=== PATIENT | female | born 1945 | race Hispanic/Latino ===

== ENCOUNTER 2018-06-28 17:51 | Emergency (ER) | payer MEDICARE ==
[2018-06-28] MEDS ORDERED: ONDANSETRON HCL 4 MG/2 ML VIAL ONE ×2 (18:02→19:41)
[2018-06-28 18:08] LABS: BASOPHILS % (AUTO) 0.3 % (0.0-5.0); EOSINOPHILS % (AUTO) 0.4 % (0.0-8.0); HEMATOCRIT 41.8 % (36-48); LYMPHOCYTES % (AUTO) 5.9 % (21.0-51.0); MEAN CORPUSCULAR HGB CONC 33.9 g/dL (32.0-36.0); MEAN CORPUSCULAR VOLUME 88.6 fL (79-99); MONOCYTES % (AUTO) 2.3 % (3.0-13.0); NEUTROPHILS % (AUTO) 91.1 % (40.0-77.0); NUCLEATED RED BLOOD CELLS 0.1 % (0.0-0.19); PLATELET COUNT (AUTO) 242 K/uL (130-400); RED BLOOD CELL COUNT(AUTO) 4.72 MIL/uL (4.00-5.50); RED CELL DISTRIBUTION WIDTH 14.3 % (11.0-15.5); WHITE BLOOD COUNT (AUTO) 8.6 K/uL (4.8-10.8)
[2018-06-28 18:18] LABS: CREATININE 0.9 mg/dL (0.5-1.5); POTASSIUM 3.6 mmol/L (3.5-5.1)
[2018-06-28] MEDS ORDERED: SODIUM CHLORIDE 0.9% 1000ML 1,000 ML IV ONE (18:38)
[2018-06-28] MEDS ORDERED: DIPHENOXYLATE HCL/ATROPINE 2.5/0.025 MG TAB PO ONE ×2 (19:42)
== END 2018-06-28 20:29 | disposition home or self-care (01) ==
LOC: EDH 17:51
DX: A09 Infectious gastroenteritis and colitis, unspecified (principal); I10 Essential (primary) hypertension; F32.9 Major depressive disorder, single episode, unspecified
CPT/HCPCS: 36415; 80048; 85025; 96361; 96374; 96376; 99283; J2405 ×2; J7030

== ENCOUNTER → 2019-11-26 | Outpatient (CLI) | payer MEDICARE | END | disposition home or self-care (01) | LOC: OIH 13:00 | PROVIDERS: ATTEND Family Medicine | DX: M25.559 Pain in unspecified hip (principal); M25.512 Pain in left shoulder; M79.652 Pain in left thigh | CPT/HCPCS: 73030; 73502; 73552 ==

== ENCOUNTER → 2020-06-23 | Outpatient (CLI) | payer MEDICARE | END | disposition home or self-care (01) | LOC: OIH 14:49 | PROVIDERS: ATTEND Family Medicine | DX: M85.88 Other specified disorders of bone density and structure, other site (principal); M53.3 Sacrococcygeal disorders, not elsewhere classified | CPT/HCPCS: 72220 ==

== ENCOUNTER 2021-02-09 11:55 | Inpatient (IN) | payer MEDICARE ==
[~2021-02-09] VITALS: Ht 406.4 cm; Wt 122.4 kg
[2021-02-09 14:13] LABS: BASOPHILS % (AUTO) 0.5 % (0.0-5.0); HEMATOCRIT 39.9 % (36-48); MEAN CORPUSCULAR HEMOGLOBIN 30.4 pg (27.0-33.0); MEAN CORPUSCULAR HGB CONC 34.3 g/dL (32.0-36.0); MEAN CORPUSCULAR VOLUME 88.7 fL (79-99); MONOCYTES % (AUTO) 8.1 % (3.0-13.0); NEUTROPHILS % (AUTO) 61.9 % (40.0-77.0); PLATELET COUNT (AUTO) 333 K/uL (130-400); RED CELL DISTRIBUTION WIDTH 14.4 % (11.0-15.5); WHITE BLOOD COUNT (AUTO) 5.9 K/uL (4.8-10.8)
[2021-02-09 14:37] LABS: CARBON DIOXIDE 24 mmol/L (21-32); CHLORIDE 105 mmol/L (101-111); GLOMERULAR FILTR. RATE CALC 58 mL/min (>60); GLUCOSE,RANDOM 125 mg/dL (70-105); POTASSIUM 3.4 mmol/L (3.5-5.1); SODIUM SERUM 142 mmol/L (136-145); UREA NITROGEN, BLOOD 18 mg/dL (7-18)
[2021-02-09 14:38] LABS: B-TYPE NATRIURETIC PEPTIDE 53 pg/mL (0-100)
[2021-02-09 14:43] LABS: ALANINE AMINOTRANSFERASE 29 U/L (12-78); ALBUMIN 3.6 g/dL (3.5-5.0); ASPARTATE AMINOTRANSFERASE 34 U/L (10-37); BILIRUBIN,TOTAL 0.5 mg/dL (0.2-1.0); CREATINE KINASE, TOTAL 147 U/L (21-232); TOTAL PROTEIN, SERUM 6.9 g/dL (6.0-8.3)
[2021-02-09 14:51] LABS: CRP QUANTITATIVE < 2.00 mg/L (0.00-9.0)
[2021-02-09] MEDS: 0.9%NACL 1000ML 1,000 ML IV SCH ×2 (15:33→19:40)
[2021-02-09] MEDS ORDERED: ACETAMINOPHEN 325 MG TAB PO PRN (18:30)
[2021-02-09] MEDS ORDERED: ONDANSETRON 4MG INJ IV PRN (18:30)
[2021-02-09 20:14] LABS: THYROID STIMULATING HORMONE 1.13 uIU/mL (0.36-3.74)
[2021-02-09 20:15] VITALS: BP 164/87
[2021-02-09 20:24] LABS: CRP QUANTITATIVE < 2.00 mg/L (0.00-9.0)
[2021-02-09] MEDS: FAMOTIDINE 20MG VIAL IV SCH (21:13)
[2021-02-09] MEDS ORDERED: HALOPERIDOL INJ 5 MG/ML VIAL ONE (22:12)
[2021-02-09] MEDS ORDERED: LORAZEPAM 2 MG/ML 1 ML VIAL ONE (22:13)
[2021-02-09] MEDS ORDERED: HALOPERIDOL INJ 5 MG/ML VIAL IV SCH ×2 (22:30)
[2021-02-09] MEDS ORDERED: LORAZEPAM 2 MG/ML 1 ML VIAL IVP ONE (22:30)
[2021-02-09] MEDS ORDERED: DiphenhydrAMINE HCL 50 MG/ML VIAL ONE (22:31)
[2021-02-09] MEDS ORDERED: ZIPRASIDONE MESYLATE 20 MG/VIAL IM ONE (22:47)
[2021-02-09 23:00] VITALS: BP 162/74
[2021-02-09] MEDS ORDERED: ZIPRASIDONE MESYLATE 20 MG/VIAL IM SCH (23:00)
[2021-02-10 02:45] VITALS: BP 176/67
[2021-02-10] MEDS: 0.9%NACL 1000ML 1,000 ML IV SCH ×3 (02:48→18:01)
[2021-02-10] MEDS ORDERED: LORAZEPAM 2 MG/ML 1 ML VIAL IVP ONE (03:00)
[2021-02-10 04:00] VITALS: BP 132/74
[2021-02-10] MEDS: FAMOTIDINE 20MG VIAL IV SCH (10:29)
[2021-02-10] MEDS ORDERED: VANCOMYCIN PROTOCOL PER PHARMACY IV SCH (11:00)
[2021-02-10] MEDS ORDERED: 0.9% NACL 250ML 250 ML IV SCH (11:30)
[2021-02-10] MEDS ORDERED: VANCOMYCIN KIT 1 GM/250 ML IV.KIT IV SCH (11:30)
[2021-02-10] MEDS ORDERED: CARBIDOPA-LEVODOPA 25-100 TAB PO SCH (11:43)
[2021-02-10] MEDS ORDERED: LEVETIRACETAM 500 MG in 0.9%NACL 100ML 100 ML IV SCH (11:54)
[2021-02-10 12:00] VITALS: BP 134/96
[2021-02-10] MEDS ORDERED: COMPOUND IV MISC 1 EACH IVSOLN MISC PRN ×2 (13:30→14:00)
[2021-02-10] MEDS ORDERED: PHARMACY COMMUNICATION MISC SCH (13:30)
[2021-02-10] MEDS ORDERED: ACYCLOVIR IV SCH (14:00)
[2021-02-10] MEDS ORDERED: [UNRECOGNIZED DRUG - OTHER] IV SCH (14:00)
[2021-02-10 14:54] LABS: ABG BASE EXCESS -3.7 mmol/L (-2.0-3.0); ABG HCO3 17.9 mmol/L (21.0-28.0); ABG PCO2 25 mmHg (32-45)
[2021-02-10] MEDS: CEFTRIAXONE 2GM VIAL IVP SCH (14:56)
[2021-02-10] MEDS ORDERED: LEVO25CA4 PO (18:11)
[2021-02-10] MEDS ORDERED: TRAM50TA4 PO (18:11)
[2021-02-10] MEDS ORDERED: IBUP-2076 PO (18:11)
[2021-02-10] MEDS ORDERED: MONT10TA32 PO (18:11)
[2021-02-10] MEDS ORDERED: TOPI50TA24 PO (18:11)
[2021-02-10] MEDS ORDERED: ISOS60TA77 PO (18:11)
[2021-02-10] MEDS ORDERED: IBUP-2071 PO (18:11)
[2021-02-10] MEDS ORDERED: PRED50TA2 PO (18:11)
[2021-02-10] MEDS ORDERED: CYCL5TAB PO (18:11)
[2021-02-10] MEDS ORDERED: FENO120T5 PO (18:11)
[2021-02-10] MEDS ORDERED: OMEP40CA21 PO (18:11)
[2021-02-10] MEDS ORDERED: ALEN70TA80 PO (18:11)
[2021-02-10] MEDS ORDERED: ROSU40TA21 PO (18:11)
[2021-02-10] MEDS ORDERED: ROPI1TAB13 PO (18:11)
[2021-02-10] MEDS ORDERED: AMIT10TA6 PO (18:11)
[2021-02-10 19:10] VITALS: BP 136/63
[2021-02-10] MEDS ORDERED: LIDOCAINE HCL-MPF 1% 2ML VIAL IV PRN (20:30)
[2021-02-10] MEDS ORDERED: POTASSIUM CHLORIDE 10% ELIXIR 20 MEQ/15 ML UDCUP PO PRN (20:30)
[2021-02-10] MEDS ORDERED: POTASSIUM CHLORIDE 20MEQ/100ML 100 ML IV PRN (20:30)
[2021-02-10 20:49] LABS: ABG BASE EXCESS -6.4 mmol/L (-2.0-3.0); ABG HCO3 17.6 mmol/L (21.0-28.0); ABG OXYGEN SATURATION 97.1 % (95.0-99.0); ABG PCO2 31 mmHg (32-45)
[2021-02-10 21:14] LABS: CREATININE 0.7 mg/dL (0.5-1.5)
[2021-02-10 21:16] LABS: POTASSIUM 2.9 mmol/L (3.5-5.1)
[2021-02-10] MEDS: SODIUM BICARB 8.4% 50ML SYRING 150 MEQ in DEXTROSE 5%-WATER 1,000 ML IVP SCH (21:19)
[2021-02-10] MEDS: POTASSIUM CHLORIDE 20MEQ/100ML 100 ML IV PRN (21:51)
[2021-02-10] MEDS: LIDOCAINE HCL-MPF 1% 2ML VIAL IJ PRN (21:54)
[2021-02-10] MEDS: [UNRECOGNIZED DRUG - OTHER] IV SCH (22:57)
[2021-02-10] MEDS: ACYCLOVIR IV SCH (22:57)
[2021-02-10 23:01] LABS: AMPHET/METH SCREEN,URINE NEGATIVE (NEGATIVE); APPEARANCE,URINE Clear (CLEAR); BARBITURATE SCREEN, URINE NEGATIVE (NEGATIVE); BENZODIAZEPINES SCREEN,URINE NEGATIVE (NEGATIVE); BILIRUBIN,URINE Negative (NEGATIVE); CANNABINOID SCREEN,URINE NEGATIVE (NEGATIVE); COCAINE SCREEN,URINE NEGATIVE (NEGATIVE); COLOR,URINE Yellow (YELLOW); GLUCOSE, URINE (UA) Negative (NEGATIVE); KETONES,URINE 15 mg/dL (NEGATIVE); LEUKOCYTE ESTERASE ,URINE Negative (NEGATIVE); NITRATE,URINE Negative (NEGATIVE); OCCULT BLOOD,URINE Negative (NEGATIVE); OPIATE SCREEN,URINE NEGATIVE (NEGATIVE); PH,URINE 5.5 (5.0-8.0); PHENCYCLIDINE SCREEN,URINE NEGATIVE (NEGATIVE); PROTEIN,URINE Negative (NEGATIVE)
[2021-02-11] VITALS: BP 143/58
[2021-02-11] MEDS: POTASSIUM CHLORIDE 20MEQ/100ML 100 ML IV PRN ×3 (00:26→21:19)
[2021-02-11] MEDS: [UNRECOGNIZED DRUG - OTHER] IV SCH ×4 (00:27→22:30)
[2021-02-11] MEDS: ACYCLOVIR IV SCH ×4 (00:27→22:30)
[2021-02-11] MEDS: LEVETIRACETAM 1,000 MG in 0.9%NACL 100ML 100 ML IV SCH ×3 (00:27→23:26)
[2021-02-11 00:39] LABS: CREATININE 0.8 mg/dL (0.5-1.5); POTASSIUM 3.4 mmol/L (3.5-5.1)
[2021-02-11 04:00] VITALS: BP 151/57
[2021-02-11] MEDS: 0.9%NACL 1000ML 1,000 ML IV SCH (04:01)
[2021-02-11 04:18] LABS: APPEARANCE,URINE Clear (CLEAR); BILIRUBIN,URINE Negative (NEGATIVE); COLOR,URINE Yellow (YELLOW); GLUCOSE, URINE (UA) Negative (NEGATIVE); KETONES,URINE 15 mg/dL (NEGATIVE); LEUKOCYTE ESTERASE ,URINE Small (NEGATIVE); NITRATE,URINE Negative (NEGATIVE); OCCULT BLOOD,URINE Negative (NEGATIVE); PH,URINE 7.5 (5.0-8.0); PROTEIN,URINE Negative (NEGATIVE)
[2021-02-11 04:31] LABS: BACTERIA,URINE None Seen /HPF (None Seen); RBC,URINE 0-1 /HPF (0-1); SQUAMOUS EPITHELIAL CELL,UR Few /HPF (0-2); WBC,URINE 0-1 /HPF (0-1)
[2021-02-11 05:47] LABS: BASOPHILS % (AUTO) 0.3 % (0.0-5.0); EOSINOPHILS % (AUTO) 3.3 % (0.0-8.0); HEMATOCRIT 33.7 % (36-48); LYMPHOCYTES % (AUTO) 25.3 % (21.0-51.0); MEAN CORPUSCULAR HEMOGLOBIN 30.1 pg (27.0-33.0); MEAN CORPUSCULAR HGB CONC 33.5 g/dL (32.0-36.0); MEAN CORPUSCULAR VOLUME 89.9 fL (79-99); MONOCYTES % (AUTO) 8.3 % (3.0-13.0); NEUTROPHILS % (AUTO) 62.6 % (40.0-77.0); PLATELET COUNT (AUTO) 240 K/uL (130-400); RED BLOOD CELL COUNT(AUTO) 3.75 MIL/uL (4.00-5.50); RED CELL DISTRIBUTION WIDTH 14.6 % (11.0-15.5)
[2021-02-11 06:06] LABS: CREATININE 0.8 mg/dL (0.5-1.5); MAGNESIUM 1.7 mg/dL (1.80-2.40); PHOSPHORUS 1.6 mg/dL (2.5-4.9); POTASSIUM 3.1 mmol/L (3.5-5.1); SALICYLATE 3.1 mg/dL (2.8-20.0); URIC ACID 6.8 mg/dL (2.6-7.2)
[2021-02-11 07:52] VITALS: BP 129/45
[2021-02-11 08:16] LABS: CREATININE 0.8 mg/dL (0.5-1.5); POTASSIUM 3.4 mmol/L (3.5-5.1)
[2021-02-11] MEDS ORDERED: 0.9% NACL 250ML 250 ML IV SCH (09:00)
[2021-02-11] MEDS: FAMOTIDINE 20MG VIAL IV SCH (10:16)
[2021-02-11] MEDS: VANCOMYCIN 750MG VIAL IVPB SCH (10:16)
[2021-02-11] MEDS: SODIUM BICARB 8.4% 50ML SYRING 150 MEQ in DEXTROSE 5%-WATER 1,000 ML IVP SCH (11:34)
[2021-02-11] MEDS: CEFTRIAXONE 2GM VIAL IVP SCH ×2 (11:38→22:13)
[2021-02-11 11:50] LABS: CREATININE 0.9 mg/dL (0.5-1.5)
[2021-02-11 11:54] LABS: POTASSIUM 2.7 mmol/L (3.5-5.1)
[2021-02-11] MEDS: LIDOCAINE HCL-MPF 1% 2ML VIAL IJ PRN ×2 (12:08→21:19)
[2021-02-11 12:15] VITALS: BP 147/87
[2021-02-11 13:38] LABS: RAPID PLASMA REAGIN NONREACTIVE (NONREACTIVE)
[2021-02-11 14:31] LABS: APPEARANCE,URINE Clear (CLEAR); BILIRUBIN,URINE Negative (NEGATIVE); COLOR,URINE Yellow (YELLOW); GLUCOSE, URINE (UA) Negative (NEGATIVE); KETONES,URINE 15 mg/dL (NEGATIVE); LEUKOCYTE ESTERASE ,URINE Negative (NEGATIVE); NITRATE,URINE Negative (NEGATIVE); OCCULT BLOOD,URINE Negative (NEGATIVE); PH,URINE >=9.0 (5.0-8.0); PROTEIN,URINE Negative (NEGATIVE)
[2021-02-11 14:40] LABS: BACTERIA,URINE Rare /HPF (None Seen); RBC,URINE 0-1 /HPF (0-1); SQUAMOUS EPITHELIAL CELL,UR Rare /HPF (0-2); WBC,URINE 0-1 /HPF (0-1)
[2021-02-11] MEDS: MAGNESIUM 2GM PREMIX 50ML 50 ML IV SCH (15:17)
[2021-02-11] MEDS: OLANZAPINE 10MG/ML 1ML VIAL IM SCH ×2 (15:37→21:00)
[2021-02-11 15:48] LABS: CREATININE 0.8 mg/dL (0.5-1.5); POTASSIUM 3.1 mmol/L (3.5-5.1)
[2021-02-11 16:52] VITALS: BP 156/85
[2021-02-11] MEDS ORDERED: LORAZEPAM 2 MG/ML 1 ML VIAL ONE (17:21)
[2021-02-11] MEDS ORDERED: [UNRECOGNIZED DRUG - REMARK] MISC STA (17:48)
[2021-02-11 20:19] LABS: CREATININE 0.9 mg/dL (0.5-1.5)
[2021-02-11 20:21] LABS: POTASSIUM 2.9 mmol/L (3.5-5.1)
[2021-02-11 21:11] VITALS: BP 132/99
[2021-02-12] MEDS: LIDOCAINE HCL-MPF 1% 2ML VIAL IJ PRN (01:34)
[2021-02-12] MEDS: [UNRECOGNIZED DRUG - OTHER] IV SCH ×3 (06:13→22:34)
[2021-02-12] MEDS: ACYCLOVIR IV SCH ×3 (06:13→22:34)
[2021-02-12 07:16] VITALS: BP 142/57
[2021-02-12] MEDS: LEVETIRACETAM 1,000 MG in 0.9%NACL 100ML 100 ML IV SCH ×2 (08:33→22:14)
[2021-02-12] MEDS: FAMOTIDINE 20MG VIAL IV SCH (08:33)
[2021-02-12 08:43] LABS: BASOPHILS % (AUTO) 0.4 % (0.0-5.0); EOSINOPHILS % (AUTO) 4.9 % (0.0-8.0); HEMATOCRIT 33.6 % (36-48); LYMPHOCYTES % (AUTO) 27.4 % (21.0-51.0); MEAN CORPUSCULAR HEMOGLOBIN 30.5 pg (27.0-33.0); MEAN CORPUSCULAR HGB CONC 34.2 g/dL (32.0-36.0); MEAN CORPUSCULAR VOLUME 89.1 fL (79-99); MONOCYTES % (AUTO) 7.3 % (3.0-13.0); NEUTROPHILS % (AUTO) 59.8 % (40.0-77.0); PLATELET COUNT (AUTO) 246 K/uL (130-400); RED BLOOD CELL COUNT(AUTO) 3.77 MIL/uL (4.00-5.50); RED CELL DISTRIBUTION WIDTH 14.7 % (11.0-15.5); WHITE BLOOD COUNT (AUTO) 4.9 K/uL (4.8-10.8)
[2021-02-12 08:55] LABS: CREATININE 0.8 mg/dL (0.5-1.5); POTASSIUM 3.8 mmol/L (3.5-5.1)
[2021-02-12] MEDS: VANCOMYCIN 750MG VIAL IVPB SCH (09:13)
[2021-02-12] MEDS: OLANZAPINE 10MG/ML 1ML VIAL IM SCH ×3 (09:32→21:00)
[2021-02-12] MEDS: CEFTRIAXONE 2GM VIAL IVP SCH (11:29)
[2021-02-12 11:32] VITALS: BP_SYST 155; BP_SYST 156; BP_DIAS 108; BP_DIAS 94
[2021-02-12] MEDS: LORAZEPAM 2 MG/ML 1 ML VIAL IM PRN (12:03)
[2021-02-12 16:26] VITALS: BP 146/79
[2021-02-12] MEDS ORDERED: GLUCAGON 1MG KIT 1 MG ML IM SCH (16:30)
[2021-02-12] MEDS ORDERED: DEXTROSE 50%-WATER 50 ML DISP.SYRIN IV ONE (16:35)
[2021-02-12] MEDS ORDERED: 0.9%NACL 100ML IV SCH (17:30)
[2021-02-12 19:58] VITALS: BP 147/99
[2021-02-12] MEDS: VANCOMYCIN 500MG+NS 100ML IVPB IV SCH (21:16)
[2021-02-12] MEDS: 0.9%NACL 100ML 100 ML IV SCH (21:16)
[2021-02-12] MEDS ORDERED: GLUCAGON 1MG KIT 1 MG ML IM PRN (21:30)
[2021-02-13] VITALS: BP 162/64
[2021-02-13] MEDS ORDERED: DEXTROSE 50%-WATER 50 ML DISP.SYRIN IV ONE (00:29)
[2021-02-13] MEDS: CEFTRIAXONE 2GM VIAL IVP SCH ×2 (00:37→13:13)
[2021-02-13] MEDS: DEXTROSE 5%-WATER 1,000 ML IV SCH (00:59)
[2021-02-13] MEDS ORDERED: DEXTROSE 50%-WATER 50 ML DISP.SYRIN IV PRN (01:00)
[2021-02-13 04:00] VITALS: BP 165/56
[2021-02-13 04:54] LABS: HEMATOCRIT 34.7 % (36-48); MEAN CORPUSCULAR HEMOGLOBIN 30.3 pg (27.0-33.0); MEAN CORPUSCULAR HGB CONC 33.7 g/dL (32.0-36.0); MEAN CORPUSCULAR VOLUME 89.9 fL (79-99); PLATELET COUNT (AUTO) 252 K/uL (130-400); RED BLOOD CELL COUNT(AUTO) 3.86 MIL/uL (4.00-5.50); RED CELL DISTRIBUTION WIDTH 14.4 % (11.0-15.5)
[2021-02-13 05:11] LABS: CREATININE 0.8 mg/dL (0.5-1.5); MAGNESIUM 1.6 mg/dL (1.80-2.40); POTASSIUM 3.2 mmol/L (3.5-5.1)
[2021-02-13 05:12] LABS: EOSINOPHILS % (MANUAL) 2 % (1-6); LYMPHOCYTES % (MANUAL) 19 % (22-44); MAN.DIFF COMMENT-IMPRESSION MANUAL DIFFERENTIAL; MONOCYTES % (MANUAL) 9 % (2-9); SEGMENTED NEUTROPHILS % 70 % (40-70)
[2021-02-13] MEDS: ACYCLOVIR IV SCH ×2 (06:03→16:23)
[2021-02-13] MEDS: [UNRECOGNIZED DRUG - OTHER] IV SCH ×2 (06:03→16:23)
[2021-02-13 07:44] VITALS: BP 161/88
[2021-02-13] MEDS: OLANZAPINE 10MG/ML 1ML VIAL IM SCH ×2 (09:00→17:04)
[2021-02-13] MEDS: VANCOMYCIN 500MG+NS 100ML IVPB IV SCH (09:38)
[2021-02-13] MEDS: 0.9%NACL 100ML 100 ML IV SCH (09:39)
[2021-02-13] MEDS: FAMOTIDINE 20MG VIAL IV SCH (09:41)
[2021-02-13] MEDS: LEVETIRACETAM 1,000 MG in 0.9%NACL 100ML 100 ML IV SCH (09:41)
[2021-02-13 11:48] LABS: GLUCOSE, CSF 53 mg/dL (40-70); TOTAL PROTEIN, CSF 89 mg/dL (15-45)
[2021-02-13 11:53] VITALS: BP 148/56
[2021-02-13 12:13] LABS: APPEARANCE,CSF CLEAR (CLEAR); COLOR,CSF COLORLESS (COLORLESS); CSF TUBE NUMBER 1
[2021-02-13 12:14] LABS: CSF 2ND TUBE NUMBER 2; RED BLOOD CELL1,CSF 14 CMM (0-0); WHITE BLOOD CELL1,CSF 3 CMM (0-5)
[2021-02-13 12:15] LABS: APPEARANCE2,CSF CLOUDY (CLEAR); COLOR2,CSF COLORLESS (COLORLESS)
[2021-02-13 16:20] VITALS: BP 144/58
[2021-02-13 20:00] VITALS: BP 128/96
[2021-02-13] MEDS: MAGNESIUM 2GM PREMIX 50ML 50 ML IV SCH (21:46)
[2021-02-13] MEDS ORDERED: 0.9% NACL 250ML 250 ML ONE (23:22)
[2021-02-14] VITALS: BP 151/47
[2021-02-14] MEDS: LEVETIRACETAM 1,000 MG in 0.9%NACL 100ML 100 ML IV SCH ×2 (00:01→13:02)
[2021-02-14] MEDS: OLANZAPINE 10MG/ML 1ML VIAL IM SCH ×3 (00:09→21:58)
[2021-02-14] MEDS: VANCOMYCIN 500MG+NS 100ML IVPB IV SCH (00:56)
[2021-02-14] MEDS: 0.9%NACL 100ML 100 ML IV SCH (00:57)
[2021-02-14] MEDS: CEFTRIAXONE 2GM VIAL IVP SCH ×3 (00:58→23:16)
[2021-02-14] MEDS: LORAZEPAM 2 MG/ML 1 ML VIAL IM PRN ×2 (01:21→17:37)
[2021-02-14] MEDS: DEXTROSE 5%-WATER 1,000 ML IV SCH (01:29)
[2021-02-14] MEDS: [UNRECOGNIZED DRUG - OTHER] IV SCH ×4 (02:28→23:17)
[2021-02-14] MEDS: ACYCLOVIR IV SCH ×4 (02:28→23:17)
[2021-02-14 04:00] VITALS: BP 180/87
[2021-02-14 05:46] LABS: BASOPHILS % (AUTO) 0.3 % (0.0-5.0); EOSINOPHILS % (AUTO) 5.3 % (0.0-8.0); LYMPHOCYTES % (AUTO) 22.9 % (21.0-51.0); MEAN CORPUSCULAR HEMOGLOBIN 29.8 pg (27.0-33.0); MEAN CORPUSCULAR VOLUME 90.2 fL (79-99); MONOCYTES % (AUTO) 8.8 % (3.0-13.0); NEUTROPHILS % (AUTO) 62.5 % (40.0-77.0); PLATELET COUNT (AUTO) 249 K/uL (130-400); RED CELL DISTRIBUTION WIDTH 14.3 % (11.0-15.5); WHITE BLOOD COUNT (AUTO) 5.8 K/uL (4.8-10.8)
[2021-02-14 06:00] LABS: CREATININE 0.8 mg/dL (0.5-1.5); MAGNESIUM 2.1 mg/dL (1.80-2.40)
[2021-02-14 06:02] LABS: POTASSIUM 2.9 mmol/L (3.5-5.1)
[2021-02-14] MEDS: POTASSIUM CHLORIDE 20MEQ/100ML 100 ML IV PRN (06:39)
[2021-02-14] MEDS: LIDOCAINE HCL-MPF 1% 2ML VIAL IJ PRN (06:40)
[2021-02-14] MEDS: FAMOTIDINE 20MG VIAL IV SCH (10:16)
[2021-02-14 12:00] VITALS: BP 138/75
[2021-02-14] MEDS ORDERED: VANCOMYCIN 750MG VIAL IVPB SCH (13:00)
[2021-02-14] MEDS ORDERED: VANCOMYCIN 500MG+NS 100ML IVPB IV SCH (13:00)
[2021-02-14] MEDS ORDERED: 0.9% NACL 250ML 250 ML IV SCH (13:00)
[2021-02-14] MEDS: FLUOXETINE HCL 10 MG CAPSULE PO SCH (15:21)
[2021-02-14 16:00] VITALS: BP 142/77
[2021-02-14 20:00] VITALS: BP 179/70
[2021-02-15] VITALS: BP 179/83
[2021-02-15] MEDS: LEVETIRACETAM 1,000 MG in 0.9%NACL 100ML 100 ML IV SCH ×3 (00:39→22:35)
[2021-02-15] MEDS: POTASSIUM CHLORIDE 20MEQ/100ML 100 ML IV PRN (00:50)
[2021-02-15] MEDS: LIDOCAINE HCL-MPF 1% 2ML VIAL IJ PRN (01:05)
[2021-02-15] MEDS: LORAZEPAM 2 MG/ML 1 ML VIAL IM PRN (01:38)
[2021-02-15 04:00] VITALS: BP 128/85
[2021-02-15 04:29] LABS: BASOPHILS % (AUTO) 0.3 % (0.0-5.0); EOSINOPHILS % (AUTO) 3.9 % (0.0-8.0); LYMPHOCYTES % (AUTO) 19.8 % (21.0-51.0); MEAN CORPUSCULAR HEMOGLOBIN 30.5 pg (27.0-33.0); MEAN CORPUSCULAR HGB CONC 34.4 g/dL (32.0-36.0); MEAN CORPUSCULAR VOLUME 88.5 fL (79-99); NEUTROPHILS % (AUTO) 66.8 % (40.0-77.0); PLATELET COUNT (AUTO) 245 K/uL (130-400); RED BLOOD CELL COUNT(AUTO) 4.07 MIL/uL (4.00-5.50); RED CELL DISTRIBUTION WIDTH 14.3 % (11.0-15.5); WHITE BLOOD COUNT (AUTO) 5.9 K/uL (4.8-10.8)
[2021-02-15 04:46] LABS: ALBUMIN 3.1 g/dL (3.5-5.0); BILIRUBIN,TOTAL 0.4 mg/dL (0.2-1.0); CREATININE 0.8 mg/dL (0.5-1.5); MAGNESIUM 1.6 mg/dL (1.80-2.40); POTASSIUM 3.7 mmol/L (3.5-5.1); TOTAL PROTEIN, SERUM 6.3 g/dL (6.0-8.3)
[2021-02-15] MEDS: [UNRECOGNIZED DRUG - OTHER] IV SCH ×3 (05:53→22:35)
[2021-02-15] MEDS: ACYCLOVIR IV SCH ×3 (05:53→22:35)
[2021-02-15] MEDS: FLUOXETINE HCL 10 MG CAPSULE PO SCH (10:39)
[2021-02-15] MEDS: OLANZAPINE 10MG/ML 1ML VIAL IM SCH (10:39)
[2021-02-15] MEDS: FAMOTIDINE 20MG VIAL IV SCH (10:39)
[2021-02-15] MEDS: CEFTRIAXONE 2GM VIAL IVP SCH ×2 (10:39→22:30)
[2021-02-15 12:00] VITALS: BP 163/93
[2021-02-15] MEDS: KCL 20 MEQ ERTAB PO PRN ×2 (14:10→16:45)
[2021-02-15] MEDS: OLANZAPINE 5 MG TAB PO SCH ×2 (14:10→22:31)
[2021-02-15] MEDS ORDERED: VANCOMYCIN 1.25GM/NS 250ML IVPB ONE ×2 (15:00)
[2021-02-15] MEDS: DEXTROSE 5%-WATER 1,000 ML IV SCH (15:50)
[2021-02-15 16:00] VITALS: BP 158/78
[2021-02-15] MEDS: MAGNESIUM 2GM PREMIX 50ML 50 ML IV SCH (19:40)
[2021-02-15 20:04] VITALS: BP 159/84
[2021-02-15] MEDS: MAGNESIUM OXIDE 400 MG TABLET PO SCH (22:36)
[2021-02-15 23:45] VITALS: BP 162/76
[2021-02-16 01:54] LABS: CREATININE,URINE RANDOM 47 mg/dL (30-135); SODIUM,URINE RANDOM 133 mmol/l (40-220)
[2021-02-16] MEDS: LORAZEPAM 2 MG/ML 1 ML VIAL IM PRN (02:19)
[2021-02-16 04:04] VITALS: BP 134/74
[2021-02-16 05:17] LABS: HEMATOCRIT 36.9 % (36-48); MEAN CORPUSCULAR HEMOGLOBIN 30.1 pg (27.0-33.0); MEAN CORPUSCULAR HGB CONC 33.6 g/dL (32.0-36.0); MEAN CORPUSCULAR VOLUME 89.6 fL (79-99); PLATELET COUNT (AUTO) 242 K/uL (130-400); RED BLOOD CELL COUNT(AUTO) 4.12 MIL/uL (4.00-5.50); RED CELL DISTRIBUTION WIDTH 14.5 % (11.0-15.5); WHITE BLOOD COUNT (AUTO) 6.5 K/uL (4.8-10.8)
[2021-02-16 05:44] LABS: ALBUMIN 3.2 g/dL (3.5-5.0); BILIRUBIN,TOTAL 0.4 mg/dL (0.2-1.0); CREATININE 0.8 mg/dL (0.5-1.5); POTASSIUM 3.3 mmol/L (3.5-5.1); TOTAL PROTEIN, SERUM 6.4 g/dL (6.0-8.3)
[2021-02-16 06:15] LABS: BAND NEUTROPHILS % (MANUAL) 1 % (0-2); EOSINOPHILS % (MANUAL) 2 % (1-6); LYMPHOCYTES % (MANUAL) 14 % (22-44); MAN.DIFF COMMENT-IMPRESSION MANUAL DIFFERENTIAL; MONOCYTES % (MANUAL) 4 % (2-9); PLATELET MORPHOLOGY COMMENT ADEQUATE; REACTIVE LYMPHOCYTES 2 % (0-0); SEGMENTED NEUTROPHILS % 77 % (40-70)
[2021-02-16] MEDS: 0.9% NACL 250ML 250 ML IV SCH ×2 (06:16→18:53)
[2021-02-16] MEDS: VANCOMYCIN 750MG VIAL IVPB SCH ×2 (06:16→18:44)
[2021-02-16] MEDS: [UNRECOGNIZED DRUG - OTHER] IV SCH ×3 (06:17→20:59)
[2021-02-16] MEDS: ACYCLOVIR IV SCH ×3 (06:17→20:59)
[2021-02-16 08:00] VITALS: BP 136/74
[2021-02-16] MEDS: DEXTROSE 5%-WATER 1,000 ML IV SCH (09:00)
[2021-02-16] MEDS: CEFTRIAXONE 2GM VIAL IVP SCH ×2 (09:51→23:37)
[2021-02-16] MEDS: OLANZAPINE 5 MG TAB PO SCH ×4 (09:51→20:56)
[2021-02-16] MEDS: MAGNESIUM OXIDE 400 MG TABLET PO SCH ×2 (09:51→20:56)
[2021-02-16] MEDS: FAMOTIDINE 20MG VIAL IV SCH (09:51)
[2021-02-16] MEDS: FLUOXETINE HCL 10 MG CAPSULE PO SCH (09:51)
[2021-02-16 12:00] VITALS: BP 124/84
[2021-02-16] MEDS: LEVETIRACETAM 1,000 MG in 0.9%NACL 100ML 100 ML IV SCH ×2 (12:25→23:37)
[2021-02-16 16:00] VITALS: BP 169/110
[2021-02-16 19:25] VITALS: BP 122/69
[2021-02-16] MEDS: KCL 20 MEQ ERTAB PO PRN (20:58)
[2021-02-17] VITALS (7 sets, daily range): BP systolic 132–163; BP diastolic 55–91
[2021-02-17] MEDS: LORAZEPAM 2 MG/ML 1 ML VIAL IM PRN (02:05)
[2021-02-17] MEDS: [UNRECOGNIZED DRUG - OTHER] IV SCH (04:42)
[2021-02-17] MEDS: ACYCLOVIR IV SCH (04:42)
[2021-02-17] MEDS: DEXTROSE 5%-WATER 1,000 ML IV SCH ×2 (06:03→23:02)
[2021-02-17 06:33] LABS: BASOPHILS % (AUTO) 0.4 % (0.0-5.0); EOSINOPHILS % (AUTO) 3.4 % (0.0-8.0); HEMATOCRIT 38.1 % (36-48); LYMPHOCYTES % (AUTO) 26.2 % (21.0-51.0); MEAN CORPUSCULAR HEMOGLOBIN 30.7 pg (27.0-33.0); MEAN CORPUSCULAR HGB CONC 34.1 g/dL (32.0-36.0); MEAN CORPUSCULAR VOLUME 90.1 fL (79-99); MONOCYTES % (AUTO) 5.9 % (3.0-13.0); NEUTROPHILS % (AUTO) 63.6 % (40.0-77.0); PLATELET COUNT (AUTO) 204 K/uL (130-400); RED BLOOD CELL COUNT(AUTO) 4.23 MIL/uL (4.00-5.50); RED CELL DISTRIBUTION WIDTH 14.8 % (11.0-15.5); WHITE BLOOD COUNT (AUTO) 7.9 K/uL (4.8-10.8)
[2021-02-17 06:42] LABS: ALBUMIN 3.1 g/dL (3.5-5.0); BILIRUBIN,TOTAL 0.4 mg/dL (0.2-1.0); CREATININE 0.8 mg/dL (0.5-1.5); POTASSIUM 4.3 mmol/L (3.5-5.1); TOTAL PROTEIN, SERUM 6.4 g/dL (6.0-8.3)
[2021-02-17] MEDS: VANCOMYCIN 750MG VIAL IVPB SCH ×2 (07:13→20:01)
[2021-02-17] MEDS: 0.9% NACL 250ML 250 ML IV SCH ×2 (07:14→18:00)
[2021-02-17] MEDS: MAGNESIUM OXIDE 400 MG TABLET PO SCH ×2 (10:35→20:01)
[2021-02-17] MEDS: FAMOTIDINE 20MG VIAL IV SCH (10:35)
[2021-02-17] MEDS: FLUOXETINE HCL 10 MG CAPSULE PO SCH (10:35)
[2021-02-17] MEDS: OLANZAPINE 5 MG TAB PO SCH ×3 (10:35→20:02)
[2021-02-17] MEDS: CEFTRIAXONE 2GM VIAL IVP SCH ×2 (10:36→23:01)
[2021-02-17] MEDS: LEVETIRACETAM 1,000 MG in 0.9%NACL 100ML 100 ML IV SCH ×2 (11:33→23:02)
[2021-02-18] MEDS: LORAZEPAM 2 MG/ML 1 ML VIAL IM PRN (01:10)
[2021-02-18 03:28] VITALS: BP 148/75
[2021-02-18] MEDS: VANCOMYCIN 750MG VIAL IVPB SCH (06:43)
[2021-02-18] MEDS: 0.9% NACL 250ML 250 ML IV SCH (06:43)
[2021-02-18] MEDS: FAMOTIDINE 20MG VIAL IV SCH (09:59)
[2021-02-18] MEDS: OLANZAPINE 5 MG TAB PO SCH ×3 (09:59→20:32)
[2021-02-18] MEDS: CEFTRIAXONE 2GM VIAL IVP SCH (09:59)
[2021-02-18] MEDS: FLUOXETINE HCL 10 MG CAPSULE PO SCH (10:00)
[2021-02-18] MEDS: MAGNESIUM OXIDE 400 MG TABLET PO SCH ×2 (10:00→20:32)
[2021-02-18] MEDS: LEVETIRACETAM 1,000 MG in 0.9%NACL 100ML 100 ML IV SCH ×2 (11:46→23:26)
[2021-02-18 12:00] VITALS: BP 151/74
[2021-02-18 16:00] VITALS: BP 137/74
[2021-02-18 20:00] VITALS: BP 142/56
[2021-02-18] MEDS: DEXTROSE 5%-WATER 1,000 ML IV SCH (20:32)
[2021-02-19] VITALS: BP 167/81
[2021-02-19 03:09] LABS: HSV 1/2 COMBINED AB IGG CSF 10.06 IV (<=0.89); MUMPS VIRUS IGG ANTIBODY CSF <5.0 AU/mL (<=10.9); MUMPS VIRUS IGM ANTIBODY CSF 0.15 IV (<=0.79); RUBEOLA (MEASLES) IGM CSF 0.18 AU (0.00-0.79); VARICELLA IGG ANTIBODY CSF <10.0 IV (.); WEST NILE VIRUS IGG CSF 0.21 IV (<=1.29); WEST NILE VIRUS IGM AB CSF 0.09 IV (<=0.89)
[2021-02-19 04:00] VITALS: BP 134/95
[2021-02-19 08:00] VITALS: BP 140/78
[2021-02-19] MEDS: OLANZAPINE 5 MG TAB PO SCH ×3 (09:08→20:20)
[2021-02-19] MEDS: MAGNESIUM OXIDE 400 MG TABLET PO SCH ×2 (09:08→20:20)
[2021-02-19] MEDS: FLUOXETINE HCL 10 MG CAPSULE PO SCH (09:08)
[2021-02-19] MEDS: FAMOTIDINE 20MG VIAL IV SCH (09:08)
[2021-02-19 12:00] VITALS: BP 136/75
[2021-02-19] MEDS: LEVETIRACETAM 1,000 MG in 0.9%NACL 100ML 100 ML IV SCH ×2 (14:00→23:13)
[2021-02-19] MEDS: DEXTROSE 5%-WATER 1,000 ML IV SCH (15:58)
[2021-02-19 16:00] VITALS: BP 138/75
[2021-02-19 20:00] VITALS: BP 159/67
[2021-02-19] MEDS ORDERED: ROPINIROLE HCL 1 MG TABLET ONE (23:49)
[2021-02-20] VITALS: BP 147/68
[2021-02-20] MEDS ORDERED: ROPINIROLE HCL 1 MG TABLET PO ONE
[2021-02-20 04:00] VITALS: BP 162/85
[2021-02-20 06:39] LABS: HEMATOCRIT 36.6 % (36-48); MEAN CORPUSCULAR HEMOGLOBIN 30.1 pg (27.0-33.0); MEAN CORPUSCULAR HGB CONC 33.1 g/dL (32.0-36.0); RED BLOOD CELL COUNT(AUTO) 4.02 MIL/uL (4.00-5.50); RED CELL DISTRIBUTION WIDTH 15.1 % (11.0-15.5); WHITE BLOOD COUNT (AUTO) 5.3 K/uL (4.8-10.8)
[2021-02-20 07:38] LABS: ALBUMIN 2.8 g/dL (3.5-5.0); BILIRUBIN,TOTAL 0.4 mg/dL (0.2-1.0); CREATININE 0.8 mg/dL (0.5-1.5); POTASSIUM 3.3 mmol/L (3.5-5.1); TOTAL PROTEIN, SERUM 5.9 g/dL (6.0-8.3)
[2021-02-20 07:48] VITALS: BP 170/69
[2021-02-20] MEDS: MAGNESIUM OXIDE 400 MG TABLET PO SCH ×2 (08:58→20:19)
[2021-02-20] MEDS: FLUOXETINE HCL 10 MG CAPSULE PO SCH (08:58)
[2021-02-20] MEDS: OLANZAPINE 5 MG TAB PO SCH ×3 (08:58→20:19)
[2021-02-20] MEDS: FAMOTIDINE 20MG VIAL IV SCH (08:58)
[2021-02-20 12:16] VITALS: BP 128/66
[2021-02-20] MEDS: DEXTROSE 5%-WATER 1,000 ML IV SCH (13:00)
[2021-02-20] MEDS: LEVETIRACETAM 1,000 MG in 0.9%NACL 100ML 100 ML IV SCH ×2 (13:24→23:34)
[2021-02-20 15:51] VITALS: BP 126/97
[2021-02-20] MEDS: KCL 20 MEQ ERTAB PO PRN ×3 (18:26→23:02)
[2021-02-20 20:00] VITALS: BP 166/82
[2021-02-20] MEDS: ROPINIROLE HCL 1 MG TABLET PO SCH (20:19)
[2021-02-21] VITALS (7 sets, daily range): BP systolic 115–190; BP diastolic 56–86
[2021-02-21] MEDS: ACETAMINOPHEN 325 MG TAB PO PRN (00:27)
[2021-02-21] MEDS: KCL 20 MEQ ERTAB PO PRN (03:21)
[2021-02-21] MEDS: FAMOTIDINE 20MG VIAL IV SCH (10:04)
[2021-02-21] MEDS: MAGNESIUM OXIDE 400 MG TABLET PO SCH ×2 (10:04→20:52)
[2021-02-21] MEDS: OLANZAPINE 5 MG TAB PO SCH ×3 (10:04→20:52)
[2021-02-21] MEDS: FLUOXETINE HCL 10 MG CAPSULE PO SCH (10:04)
[2021-02-21] MEDS: LEVETIRACETAM 1,000 MG in 0.9%NACL 100ML 100 ML IV SCH ×2 (12:31→23:47)
[2021-02-21] MEDS: DEXTROSE 5%-WATER 1,000 ML IV SCH (15:30)
[2021-02-21] MEDS: ROPINIROLE HCL 1 MG TABLET PO SCH (20:52)
[2021-02-22 04:00] VITALS: BP 168/60
[2021-02-22 08:01] VITALS: BP 127/60
[2021-02-22] MEDS: MAGNESIUM OXIDE 400 MG TABLET PO SCH ×2 (09:07→20:32)
[2021-02-22] MEDS: DEXTROSE 5%-WATER 1,000 ML IV SCH (09:07)
[2021-02-22] MEDS: FLUOXETINE HCL 10 MG CAPSULE PO SCH (09:08)
[2021-02-22] MEDS: OLANZAPINE 5 MG TAB PO SCH ×3 (09:08→20:32)
[2021-02-22] MEDS: FAMOTIDINE 20MG VIAL IV SCH (09:08)
[2021-02-22 11:55] VITALS: BP 157/63
[2021-02-22] MEDS: LEVETIRACETAM 1,000 MG in 0.9%NACL 100ML 100 ML IV SCH ×2 (12:38→23:32)
[2021-02-22 15:50] VITALS: BP 171/60
[2021-02-22 18:36] VITALS: BP 156/82
[2021-02-22 20:00] VITALS: BP 174/65
[2021-02-22] MEDS: ROPINIROLE HCL 1 MG TABLET PO SCH (20:32)
[2021-02-23] VITALS: BP 157/50
[2021-02-23] MEDS: ACETAMINOPHEN 325 MG TAB PO PRN (02:03)
[2021-02-23 04:00] VITALS: BP 145/63
[2021-02-23 08:00] VITALS: BP 150/76
[2021-02-23] MEDS: FAMOTIDINE 20MG VIAL IV SCH (10:01)
[2021-02-23] MEDS: MAGNESIUM OXIDE 400 MG TABLET PO SCH ×2 (10:01→20:21)
[2021-02-23] MEDS: OLANZAPINE 5 MG TAB PO SCH ×3 (10:02→20:21)
[2021-02-23] MEDS: FLUOXETINE HCL 10 MG CAPSULE PO SCH (10:02)
[2021-02-23 12:00] VITALS: BP 135/62
[2021-02-23] MEDS: LEVETIRACETAM 1,000 MG in 0.9%NACL 100ML 100 ML IV SCH (12:19)
[2021-02-23 16:00] VITALS: BP 152/72
[2021-02-23 20:00] VITALS: BP 153/70
[2021-02-23] MEDS: DEXTROSE 5%-WATER 1,000 ML IV SCH (20:21)
[2021-02-23] MEDS: ROPINIROLE HCL 1 MG TABLET PO SCH (20:21)
[2021-02-23] MEDS ORDERED: LORAZEPAM 2 MG/ML 1 ML VIAL ONE (21:12)
[2021-02-23] MEDS ORDERED: LORAZEPAM 2 MG/ML 1 ML VIAL IVP ONE ×2 (21:30)
[2021-02-23] MEDS ORDERED: DiphenhydrAMINE HCL 50 MG/ML VIAL ONE (22:00)
[2021-02-23] MEDS ORDERED: DiphenhydrAMINE HCL 50 MG/ML VIAL IV ONE (22:00)
[2021-02-23] MEDS ORDERED: ZIPRASIDONE MESYLATE 20 MG/VIAL IM SCH (22:00)
[2021-02-23] MEDS ORDERED: ZIPRASIDONE MESYLATE 20 MG/VIAL IM ONE (22:04)
[2021-02-24] VITALS: BP 160/88
[2021-02-24] MEDS: LEVETIRACETAM 1,000 MG in 0.9%NACL 100ML 100 ML IV SCH ×2 (00:57→12:11)
[2021-02-24] MEDS: DEXTROSE 5%-WATER 1,000 ML IV SCH (03:00)
[2021-02-24 04:00] VITALS: BP 138/65
[2021-02-24 06:16] LABS: POTASSIUM 3.7 mmol/L (3.5-5.1)
[2021-02-24 08:00] VITALS: BP 160/55
[2021-02-24 12:00] VITALS: BP 173/69
[2021-02-24] MEDS: MAGNESIUM OXIDE 400 MG TABLET PO SCH ×2 (12:04→20:47)
[2021-02-24] MEDS: FLUOXETINE HCL 10 MG CAPSULE PO SCH (12:04)
[2021-02-24] MEDS: OLANZAPINE 5 MG TAB PO SCH ×3 (12:04→20:47)
[2021-02-24] MEDS: FAMOTIDINE 20MG VIAL IV SCH (12:04)
[2021-02-24 16:00] VITALS: BP 145/51
[2021-02-24 20:47] VITALS: BP 138/73
[2021-02-24] MEDS: ROPINIROLE HCL 1 MG TABLET PO SCH (20:47)
== END 2021-02-24 21:40 | DRG 92 ==
LOC: EDH 11:55 → OBSVTOIN 18:23 → EDHIP 18:23 → 3CH 02-10 11:42
PROVIDERS: ADMIT Internal Medicine; ATTEND Internal Medicine
PROC: 009U3ZX Drainage of Spinal Canal, Percutaneous Approach, Diagnostic (ICD-10-PCS; principal; 2021-02-13)
DX: G92 Toxic encephalopathy (principal); E87.0 Hyperosmolality and hypernatremia; E87.4 Mixed disorder of acid-base balance; N17.9 Acute kidney failure, unspecified; N39.0 Urinary tract infection, site not specified; E87.6 Hypokalemia; E78.5 Hyperlipidemia, unspecified; E03.9 Hypothyroidism, unspecified; I25.10 Atherosclerotic heart disease of native coronary artery without angina pectoris; F32.9 Major depressive disorder, single episode, unspecified; E11.22 Type 2 diabetes mellitus with diabetic chronic kidney disease; E66.9 Obesity, unspecified; E78.00 Pure hypercholesterolemia, unspecified; E83.42 Hypomagnesemia; F03.90 Unspecified dementia, unspecified severity, without behavioral disturbance, psychotic disturbance, mood disturbance, and anxiety; I12.9 Hypertensive chronic kidney disease with stage 1 through stage 4 chronic kidney disease, or unspecified chronic kidney disease; J45.909 Unspecified asthma, uncomplicated; N18.9 Chronic kidney disease, unspecified; R32 Unspecified urinary incontinence; Z20.822 Contact with and (suspected) exposure to COVID-19; T39.095A Adverse effect of salicylates, initial encounter; Y92.89 Other specified places as the place of occurrence of the external cause; Z74.01 Bed confinement status
CPT/HCPCS: 36415; 36600; 62272; 70450; 70551; 74018; 80048; 80053; 80202; 80305; 81001; 81003; 82140; 82550; 82570; 82803; 82945; 82948; 83036; 83605; 83735; 83880; 83935; 84100; 84145; 84157; 84300; 84443; 84484; 84550; 85025; 85027; 85651; 86140; 86592; 86694; 86701; 86735; 86765; 86787; 86788; 87040; 87071; 87088; 87205; 87390; 87483; 87635; 87804; 89051; 92610; 93005; 93880; 97039; G0378; G0481; J0133; J0696; J1200; J1610; J1630; J1953; J2060; J3370; J3475; J3480; J3486; J3490; J7030; J7050; J7070